=== PATIENT | female | born 2000 | race Caucasian/White ===

== ENCOUNTER 2025-05-05 01:43 | Emergency (ER) | payer OTHER, SELFPAY ==
[2025-05-05 01:49] VITALS: BP 151/101; PULSE 94; TEMP 36.7; O2SAT 100; BMI 22.5
[2025-05-05] MEDS: DIPHENHYDRAMINE HCL 25 MG CAPSULE 50 MG PO (02:32)
--- NOTE | 2025-05-05 03:11 | ED.ALLEREA1 ---
HPI - Allergic Reaction General Chief complaint: Allergic Reaction Stated complaint: POSS ALLERGIC REACTION Time Seen by Provider: 05/05/25 01:56 Source: patient Mode of arrival: walk-in Limitations: no limitations History of Present Illness HPI narrative: patient state she took Nyguil and had a reaction. Dry mouth. tightening of her jaw. numbing sensation. Brought to ER by her parents. No rash or dyspnea. symptoms started about 15 minutes after taking nyguil Related Data Home Medications ?Medication ?Instructions ?Recorded ?Confirmed methylphenidate HCl 18 mg 18 mg PO PRN 05/05/25 05/05/25 tablet,extended release 24 hr (Concerta) Allergies Allergy/AdvReac Type Severity Reaction Status Date / Time No Known Drug Allergies Allergy Verified 05/05/25 02:05 Review of Systems ROS Status of ROS 10 or more systems reviewed and unremarkable except as noted in history and below PFSH PFSH Social History Little interest or pleasure in doing things: not at all Feeling down, depressed, or hopeless: not at all Exam Constitutional Vital Signs, click to edit/add: Last Vital Signs Temp 98.0 F 05/05/25 01:49 Pulse 94 H 05/05/25 01:49 Resp 20 05/05/25 01:49 BP 151/101 H 05/05/25 01:49 Pulse Ox 100 05/05/25 01:49 O2 Del Method Room Air 05/05/25 01:49 Common normals: no apparent distress, average body habitus, oriented x3, no limitations, healthy appearing, alert and well nourished [facility] Common normals: normocephalic and head/scalp atraumatic Throat: posterior oropharynx normal Eye Common normals: EOMs intact bilaterally and conjunctivae normal Respiratory Common normals: normal respiratory effort, no retractions, no use of accessory muscles and clear to auscultation bilaterally Cardio Common normals: regular rate, regular rhythm, S1 normal heart sound and S2 normal heart sound Extremity Common normals: normal to inspection and full ROM Neuro Common normals: oriented x3, CN's II-XII intact bilaterally and moves all extremities Psych Appearance: grossly normal Course Vital Signs Vital signs: Vital Signs Temperature 98.0 F 05/05/25 01:49 Pulse Rate 94 H 05/05/25 01:49 Respiratory Rate 20 05/05/25 01:49 Blood Pressure 151/101 H 05/05/25 01:49 Pulse Oximetry 100 05/05/25 01:49 Oxygen Delivery Method Room Air 05/05/25 01:49 Temperature 98.0 F 05/05/25 01:49 Pulse Rate 94 H 05/05/25 01:49 Respiratory Rate 20 05/05/25 01:49 Blood Pressure 151/101 H 05/05/25 01:49 Pulse Oximetry 100 05/05/25 01:49 Oxygen Delivery Method Room Air 05/05/25 01:49 MDM - Allergic Reaction MDM Narrative Medical decision making narrative: patient presents with more of an adverse reaction to Nyguil as opposed to allergic reaction. No rash or swelling. Given dose of benadryl in the department and observed. Patient feeling better at discharged and is to follow up with her doctor Discharge Plan Discharge Chief Complaint: Allergic Reaction Clinical Impression: Adverse drug effect Patient Disposition: Home, Self-Care Prescriptions / Home Meds: No Action methylphenidate HCl [Concerta] 18 mg tablet extended release 24hr 18 mg PO PRN Print Language: Thai Instructions: Adverse Drug Reaction (ED) Additional Instructions: avoid nyguil Referrals: Holly Franks DO [Primary Care Provider] - 1 week
[2025-05-05 03:19] VITALS: O2SAT 99
== END 2025-05-05 03:27 | disposition home or self-care (01) ==
PROVIDERS: Emergency Provider Internal Medicine; PCP Family Medicine
DX: T50.995A Adverse effect of other drugs, medicaments and biological substances, initial encounter (principal); R20.0 Anesthesia of skin
CPT/HCPCS: 99284